=== PATIENT | female | born 1995 ===

== ENCOUNTER 2019-10-21 09:04 | Emergency (ER) | payer BC ==
--- NOTE | 2019-10-21 10:09 | Emergency Department Report ---
<TYRESEYOSVANY A - Last Filed: 10/21/19 12:42> ED Female HPI - General Chief complaint: Vaginal Bleeding Stated complaint: 4 WKS /BLEEDING/PAIN Time Seen by Provider: 10/21/19 10:05 Source: patient Mode of arrival: Ambulatory Limitations: No Limitations - History of Present Illness Initial comments: 24 yo obese comes to ER with vag bleeding in early preg. No care. LMP 12/9. Had 4 home preg tests that were positive but today she took another and it was "faint." She did this test because she has had vag bleeding for 2 days. Called her old ob but they would not see her today and they told her to come to ER. She endorses bilateral abd cramps "like period." No back pain/ no fever/ no chills/ no vag discharge. This is second ; has 1 term child One sexual partner- her . MD Complaint: vaginal bleeding -: days(s) Severity: moderate Quality: cramping Are you Now?: Yes Associated Symptoms: denies other symptoms, abdominal pain (cramps) - Related Data Sexually active: Yes : 2 Para: 1 A: 0 Home Medications Medication Instructions Recorded Confirmed Last Taken Vit,Calc76/Iron/Folic 1 tab PO QDAY 07/04/13 01/24/14 01/11/14 18:00 [Prenatabs Rx Tablet] 1 Previous Rx's Medication Instructions Recorded Last Taken Type Nitrofurantoin Mccracken/M-Cryst 100 mg PO Q12HR #14 capsule 01/24/14 Unknown Rx [Macrobid] labetaloL [Labetalol 100mg TAB] 100 mg PO BID #60 tablet 01/24/14 Unknown Rx Diclofenac Sodium [Voltaren] 100 gm TP Q6H PRN #1 gel..gram. 08/11/18 Unknown Rx Allergies Allergy/AdvReac Type Severity Reaction Status Date / Time No Known Allergies Allergy Verified 11/21/13 07:37 ED Review of Systems Comment: All other systems reviewed and negative ED Past Medical Hx - Past Medical History Previous Medical History?: Yes Hx Hypertension: No Hx Heart Attack/AMI: No Hx Congestive Heart Failure: No Hx Diabetes: No Hx Deep Vein Thrombosis: No Hx Pulmonary Embolism: No Hx Liver Disease: No Hx Renal Disease: No Hx Sickle Cell Disease: No Hx Headaches / Migraines: No Hx Seizures: No Hx Asthma: No Hx COPD: No Hx Tuberculosis: No Hx HIV: No Additional medical history: facial paralysis - Surgical History Past Surgical History?: No - Family History Family history: no significant - Social History Smoking Status: Never Smoker Substance Use Type: None - Medications Home Medications: Home Medications Medication Instructions Recorded Confirmed Last Taken Type Vit,Calc76/Iron/Folic 1 tab PO QDAY 07/04/13 01/24/14 01/11/14 18:00 History [Prenatabs Rx Tablet] 1 Nitrofurantoin Mccracken/M-Cryst 100 mg PO Q12HR #14 capsule 01/24/14 Unknown Rx [Macrobid] labetaloL [Labetalol 100mg TAB] 100 mg PO BID #60 tablet 01/24/14 Unknown Rx Diclofenac Sodium [Voltaren] 100 gm TP Q6H PRN #1 gel..gram. 08/11/18 Unknown Rx ED Physical Exam - General Limitations: No Limitations General appearance: alert, in no apparent distress - Head Head exam: Present: atraumatic, normocephalic - Eye Eye exam: Present: normal appearance - ENT ENT exam: Present: mucous membranes moist - Neck Neck exam: Present: normal inspection - Respiratory Respiratory exam: Present: normal lung sounds bilaterally. Absent: respiratory distress - Cardiovascular Cardiovascular Exam: Present: regular rate, normal rhythm. Absent: systolic murmur, diastolic murmur, rubs, gallop - GI/Abdominal GI/Abdominal exam: Present: soft, normal bowel sounds - Extremities Exam Extremities exam: Present: normal inspection - Back Exam Back exam: Present: normal inspection - Neurological Exam Neurological exam: Present: alert, oriented X3 - Psychiatric Psychiatric exam: Present: normal affect, normal mood - Skin Skin exam: Present: warm, dry, intact, normal color. Absent: rash ED Medical Decision Making - Lab Data Result diagrams: 10/21/19 10:40 10/21/19 10:40 - Radiology Data Radiology results: report reviewed, image reviewed - Medical Decision Making Lab Results 10/21/19 10/21/19 10/21/19 Range/Units 10:40 10:40 10:40 WBC 5.4 (4.5-11.0) K/mm3 RBC 5.17 H (3.65-5.03) M/mm3 Hgb 14.8 H (10.1-14.3) gm/dl Hct 44.1 H (30.3-42.9) % MCV 85 (79-97) fl MCH 29 (28-32) pg MCHC 34 (30-34) % RDW 14.1 (13.2-15.2) % Plt Count 241 (140-440) K/mm3 Lymph % (Auto) 33.7 (13.4-35.0) % Mccracken % (Auto) 4.7 (0.0-7.3) % Eos % (Auto) 1.1 (0.0-4.3) % Baso % (Auto) 0.4 (0.0-1.8) % Lymph # 1.8 (1.2-5.4) K/mm3 Mccracken # 0.2 (0.0-0.8) K/mm3 Eos # 0.1 (0.0-0.4) K/mm3 Baso # 0.0 (0.0-0.1) K/mm3 Seg Neutrophils % 60.1 (40.0-70.0) % Seg Neutrophils # 3.2 (1.8-7.7) K/mm3 Sodium 140 (137-145) mmol/L Potassium 4.2 (3.6-5.0) mmol/L Chloride 101.8 (98-107) mmol/L Carbon Dioxide 23 (22-30) mmol/L Anion Gap 19 mmol/L BUN 10 (7-17) mg/dL Creatinine 0.5 L (0.7-1.2) mg/dL Estimated GFR > 60 ml/min BUN/Creatinine Ratio 20 % Glucose 139 H (65-100) mg/dL Calcium 9.3 (8.4-10.2) mg/dL HCG, Quant (0-4) mIU/mL Urine Color (Yellow) Urine Turbidity (Clear) Urine pH (5.0-7.0) Ur Specific [place] (1.003-1.030) Urine Protein (Negative) mg/dL Urine Glucose (UA) (Negative) mg/dL Urine Ketones (Negative) mg/dL Urine Blood (Negative) Urine Nitrite (Negative) Urine Bilirubin (Negative) Urine Urobilinogen (<2.0) mg/dL Ur Leukocyte Esterase (Negative) Urine WBC (Auto) (0.0-6.0) /HPF Urine RBC (Auto) (0.0-6.0) /HPF U Epithel Cells (Auto) (0-13.0) /HPF Urine Bacteria (Auto) (Negative) /HPF Urine Mucus /HPF Urine HCG, Qual (Negative) Blood Type O POSITIVE Ord Rhogam Gestat Weeks Rh pos WEEKS 10/21/19 10/21/19 Range/Units 10:40 Unknown WBC (4.5-11.0) K/mm3 RBC (3.65-5.03) M/mm3 Hgb (10.1-14.3) gm/dl Hct (30.3-42.9) % MCV (79-97) fl MCH (28-32) pg MCHC (30-34) % RDW (13.2-15.2) % Plt Count (140-440) K/mm3 Lymph % (Auto) (13.4-35.0) % Mccracken % (Auto) (0.0-7.3) % Eos % (Auto) (0.0-4.3) % Baso % (Auto) (0.0-1.8) % Lymph # (1.2-5.4) K/mm3 Mccracken # (0.0-0.8) K/mm3 Eos # (0.0-0.4) K/mm3 Baso # (0.0-0.1) K/mm3 Seg Neutrophils % (40.0-70.0) % Seg Neutrophils # (1.8-7.7) K/mm3 Sodium (137-145) mmol/L Potassium (3.6-5.0) mmol/L Chloride (98-107) mmol/L Carbon Dioxide (22-30) mmol/L Anion Gap mmol/L BUN (7-17) mg/dL Creatinine (0.7-1.2) mg/dL Estimated GFR ml/min BUN/Creatinine Ratio % Glucose (65-100) mg/dL Calcium (8.4-10.2) mg/dL HCG, Quant 4.65 H (0-4) mIU/mL Urine Color Yellow (Yellow) Urine Turbidity Slightly-cloudy (Clear) Urine pH 5.0 (5.0-7.0) Ur Specific [place] 1.027 (1.003-1.030) Urine Protein 30 mg/dl (Negative) mg/dL Urine Glucose (UA) Neg (Negative) mg/dL Urine Ketones Neg (Negative) mg/dL Urine Blood Lg (Negative) Urine Nitrite Neg (Negative) Urine Bilirubin Neg (Negative) Urine Urobilinogen < 2.0 (<2.0) mg/dL Ur Leukocyte Esterase Neg (Negative) Urine WBC (Auto) 4.0 (0.0-6.0) /HPF Urine RBC (Auto) > 182.0 (0.0-6.0) /HPF U Epithel Cells (Auto) 3.0 (0-13.0) /HPF Urine Bacteria (Auto) 1+ (Negative) /HPF Urine Mucus 2+ /HPF Urine HCG, Qual Negative (Negative) Blood Type Ord Rhogam Gestat Weeks WEEKS Vital Signs 10/21/19 10/21/19 10/21/19 09:16 11:30 11:31 Temperature 98 F Pulse Rate 81 20 L 99 H Respiratory 20 20 20 Rate Blood Pressure 137/91 Blood Pressure 132/86 [Left] O2 Sat by Pulse 98 98 98 Oximetry labs noted Rh pos us noted G2 hgb stable VS stable pt informed of test results and need to follow up with obgyn in 48 hours for interval changes. pt is ambulatory, in nad, taking po without difficulty. dc home on pelvic rest with obgyn follow up - Differential Diagnosis ro ectopic/ ro ab ED Disposition Clinical Impression: Miscarriage Disposition: DC-01 TO HOME OR SELFCARE Is pt being admited?: No Does the pt Need Aspirin: No Condition: Stable Instructions: Spontaneous Miscarriage (ED), Threatened Miscarriage (ED) Additional Instructions: pelvic rest- no sex/tampons follow up with obgyn on Thursday referral below tylenol for pain diet as tolerated stay well hydrated Referrals: SOCORRO WEBSTER MD [Staff Physician] - 3-5 Days Time of Disposition: 12:04 <ANNIE MONTOYA - Last Filed: 10/22/19 14:59> ED Review of Systems ROS: Stated complaint: 4 WKS /BLEEDING/PAIN Other details as noted in HPI ED Course Vital Signs 10/21/19 10/21/19 10/21/19 09:16 11:30 11:31 Temperature 98 F Pulse Rate 81 20 L 99 H Respiratory 20 20 20 Rate Blood Pressure 137/91 Blood Pressure 132/86 [Left] O2 Sat by Pulse 98 98 98 Oximetry 01/10/20 12:43 Temperature Pulse Rate 89 Respiratory 20 Rate Blood Pressure Blood Pressure 121/75 [Left] O2 Sat by Pulse 98 Oximetry ED Medical Decision Making - Lab Data Result diagrams: 10/21/19 10:40 10/21/19 10:40 - Medical Decision Making Attestation: Available for consultation Critical care attestation.: If time is entered above; I have spent that time in minutes in the direct care of this critically ill patient, excluding procedure time. ED Disposition Is pt being admited?: No
[2019-10-21 11:06] LABS: Basophils % (Auto) 0.4 % (0.0-1.8); Eosinophils # (Auto) 0.1 K/mm3 (0.0-0.4); Eosinophils % (Auto) 1.1 % (0.0-4.3); Hematocrit 44.1 % (30.3-42.9); Hemoglobin 14.8 gm/dl (10.1-14.3); Lymphocytes # (Auto) 1.8 K/mm3 (1.2-5.4); Lymphocytes % (Auto) 33.7 % (13.4-35.0); Mean Corpuscular HGB Conc 34 % (30-34); Mean Corpuscular Volume 85 fl (79-97); Monocytes # (Auto) 0.2 K/mm3 (0.0-0.8); Monocytes % (Auto) 4.7 % (0.0-7.3); Platelet Count 241 K/mm3 (140-440); Red Blood Count 5.17 M/mm3 (3.65-5.03); Red Cell Distribution Width 14.1 % (13.2-15.2)
[2019-10-21 11:23] LABS: BUN/Creatinine Ratio 20; Blood Urea Nitrogen 10 mg/dL (7-17); Calcium 9.3 mg/dL (8.4-10.2); Hemolysis Index 3
[2019-10-21 11:41] LABS: Bacteria,Urine 1+ /HPF (Negative); Bilirubin,Urine NEG (Negative); Blood,Urine LG (Negative); Color,Urine Yellow (Yellow); HCG Qualitative,Urine Negative (Negative); Mucus,Urine 2+ /HPF; RBC,Urine > 182.0 /HPF (0.0-6.0); Urobilinogen,Urine < 2.0 mg/dL (<2.0)
--- NOTE | 2019-10-21 12:28 | Ultrasound Report ---
ULTRASOUND OB LESS THAN 14 WEEKS FETUS ULTRASOUND OB TRANSVAGINAL HISTORY: Vaginal bleeding during TECHNIQUE: Transabdominal and transvaginal imaging with color Doppler interrogation. COMPARISON: None. FINDINGS: The uterus is retroflexed and measures 12.2 x 4.8 x 5.9 cm. No obvious uterine mass is iden tified. Multiple millimetric nabothian cysts are noted in the cervix. The endometrium is homogeneous but mildly thickened measuring 1.5 cm. No intrauterine is de monstrated. The right ovary measures 3.2 x 2.1 x 1.2 cm. The left ovary measures 2.5 x 2.0 x 2.9 cm. No adnexal c yst or mass. No pelvic fluid collection. IMPRESSION: No intrauterine is visualized. The endometrium is mildly thickened measuring 1.5 cm. Consid erations include a very early nonvisualized , spontaneous with retained products of conception, or nonvisualized ectopic . Please correlate with the patient's clinical present ation, history and laboratory values. Signer Name: Willis Donato Jr, MD Signed: 10/21/2019 12:23 PM Workstation Name: [id number]
[2019-10-21 12:50] VITALS: BP 121/75
== END 2019-10-21 12:43 | disposition home or self-care (01) ==
LOC: ED 09:04
DX: O03.9 Complete or unspecified spontaneous abortion without complication (principal); Z79.899 Other long term (current) drug therapy
CPT/HCPCS: 36415; 76801; 76817; 80048; 81001; 81025; 84702; 85025; 86900; 86901

== ENCOUNTER 2021-03-23 17:15 | Emergency (ER) | payer BC ==
[2021-03-23 17:53] VITALS: BP 121/72
== END 2021-03-24 07:00 | disposition left against medical advice (07) ==
LOC: ED 17:15
DX: O20.8 Other hemorrhage in early pregnancy (principal); O26.891 Other specified pregnancy related conditions, first trimester; R10.9 Unspecified abdominal pain; Z3A.01 Less than 8 weeks gestation of pregnancy; Z53.21 Procedure and treatment not carried out due to patient leaving prior to being seen by health care provider